=== PATIENT | female | born 1960 | race Caucasian/White ===

== ENCOUNTER → 2017-09-11 | Outpatient (CLI) | payer OTHER ==
--- NOTE | 2017-09-12 08:26 | RADIOLOGY IMAGING REPORT ---
FACILITY: [facility] PATIENT NAME: OLEKSANDR LOTT : [id number] MR: [id number] V: [id number] EXAM DATE: ORDERING PHYSICIAN: ODESSA HUANG TECHNOLOGIST: Sherry Gil PROCEDURE:BILATERAL DIGITAL SCREENING MAMMOGRAM WITH CAD ASSISTED INTERPRETATION AND 3D BREAST TOMOSYNTHESIS. COMPARISON:Prior mammograms dated 09/05/16, 08/28/15, 08/26/14, 08/20/13 and 11/04/11. INDICATIONS:SCREENING FINDINGS: A small amount of fibroglandular tissue is seen throughout the breasts. The parenchymal pattern has remained stable when allowing for difference in mammographic technique and patient positioning. There is no evidence of malignant appearing mass, malignant appearing calcification or other secondary sign of malignancy in either breast. DIAGNOSTIC CATEGORY 1--NEGATIVE. RECOMMENDATIONS: ROUTINE MAMMOGRAM AND CLINICAL EVALUATION. IMPRESSION: Bi-RADS 1: No significant abnormality is seen. Images were reviewed with R2CAD and 3D breast tomosynthesis. Dictated by: Lissette Randolph M.D. on 09/11/2017 at 15:57 Transcribed by: SANDRA on 09/11/2017 at 18:13 Approved by: Lissette Randolph M.D. on 09/12/2017 at 8:25 [facility]
== END ==
LOC: MAMO 00:39
PROVIDERS: ATTEND Physician Assistant
DX: Z12.31 Encounter for screening mammogram for malignant neoplasm of breast (principal)
CPT/HCPCS: 77063; 77067

== ENCOUNTER 2017-11-27 02:50 | Day surgery (SDC) | payer OTHER ==
[~2017-11-27] VITALS: Ht 162.6 cm; Wt 100.2 kg
[2017-11-27] VITALS (7 sets, daily range): BP systolic 96–111; BP diastolic 50–88
[~2017-11-27 02:50] MED LIST: CHOL10005 PO; FISH1CAP15 PO; LEVO-3 PO; LISI-355 PO
[2017-11-27] MEDS ORDERED: LIDOCAINE MPF 1% 5 ML VIAL ONE (06:49)
[2017-11-27] MEDS ORDERED: PROPOFOL EMUL(*) 10MG/ML 20 ML 60 ML ONE (06:49)
[2017-11-27] MEDS ORDERED: NORMOSOL R SOLN(*) 1000 ML BAG 1,000 ML IV PRN (12:40)
[2017-11-27] MEDS ORDERED: LIDOCAINE/SOD BICARB 8.4% SYR ID ONE (12:40)
== END 2017-11-27 15:17 | disposition home or self-care (01) ==
LOC: OR 02:50
PROVIDERS: ATTEND Family Medicine
DX: Z12.11 Encounter for screening for malignant neoplasm of colon (principal); K57.30 Diverticulosis of large intestine without perforation or abscess without bleeding
CPT/HCPCS: 00812; 45378; J2001; J2704

== ENCOUNTER → 2018-10-01 | Outpatient (CLI) | payer OTHER ==
--- NOTE | 2018-10-02 08:47 | RADIOLOGY IMAGING REPORT ---
FAC[place] [facility] [place] PATIENT NAME: OLEKSANDR LOTT : [id number] MR: [id number] V: [id number] EXAM DATE: ORDERING PHYSICIAN: ODESSA HUANG TECHNOLOGIST: Danna Eric PROCEDURE:BILATERAL DIGITAL SCREENING MAMMOGRAM WITH CAD ASSISTED INTERPRETATION & 3D TOMOSYNTHESIS COMPARISON:Prior mammograms 09/11/17, 09/05/16, 08/28/15, 08/26/14, 08/20/13, 11/04/11. INDICATIONS:SCREENING FINDINGS: Scattered fibroglandular densities are seen throughout the breasts. The parenchymal pattern has remained stable allowing for difference in mammographic technique & patient positioning. DIAGNOSTIC CATEGORY 1--NEGATIVE. RECOMMENDATIONS: ROUTINE MAMMOGRAM AND CLINICAL EVALUATION. IMPRESSION: BIRADS 1: Negative. No significant abnormality is seen. Dictated by: Lissette Randolph M.D. on 10/01/2018 at 16:08 Transcribed by: CHARLEY on 10/02/2018 at 7:57 Approved by: Lissette Randolph M.D. on 10/02/2018 at 8:46 [facility]
== END ==
LOC: MAMO 00:55
PROVIDERS: ATTEND Physician Assistant
DX: Z12.31 Encounter for screening mammogram for malignant neoplasm of breast (principal)
CPT/HCPCS: 77063; 77067